=== PATIENT | female | born 1965 | race Two or more races ===

== ENCOUNTER 2019-11-24 06:16 | Inpatient (IN) | payer SELFPAY ==
[2019-11-24] VITALS (10 sets, daily range): BP systolic 101–167; BP diastolic 59–85
[~2019-11-24] VITALS: Ht 167.6 cm; Wt 82.1 kg
--- NOTE | 2019-11-24 06:44 | PHYS DOC ---
Past Medical History Past Medical History: No Pertinent History Past Surgical History: No Surgical History Smoking Status: Never Smoker Alcohol Use: None Drug Use: None Adult General Chief Complaint Chief Complaint: ABDOMINAL PAIN HPI HPI 54 year old female who presents with upper abdominal pain that began Sunday. Pain originally was intermittent, but became constant yesterday. Pain radiates t o the back and is currently 10/10. She has also been nauseous since Sunday and had one episode of nonbloody vomiting around 4am this morning. Last BM was yesterday and was nonbloody. She has not been able to eat much since Sunday. She ate some enchiladas which worsened her abdominal pain. She has had a similar pain like this about a year ago. She said that she went to [facility] and they said her "gallbladder was swollen". She also admits to dysuria that began about 2 weeks ago with increased frequency of urination and decreased void volume. She denies hematuria, heamtochezia, melena, chest pain, palpitations, or shortness of breath. Patient is Czech speaking. Daughter is in the room and helped provide the history. Review of Systems Review of Systems Constitutional: Denies fever or chills; reports malaise Eyes: Denies redness or eye pain HENT: Denies nasal congestion or sore throat Respiratory: Denies cough or shortness of breath Cardiovascular: Denies chest pain or palpitations GI: Admits to abdominal pain, nausea, and vomiting : Admits to dysuria and increased frequency of urination; denies hematuria Musculoskeletal: Admits to back pain; denies joint pain Integument: Denies rash or skin lesions Neurologic: Denies headache, focal weakness or sensory changes Complete systems were reviewed and found to be within normal limits, except as documented in this note. Family History Family History No pertinent family history. Current Medications Current Medications Current Medications Medications (Trade) Dose Ordered Sig/Nash Start Time Stop Time Status Last Admin Dose Admin Famotidine (Pepcid Vial) 20 mg 1X ONCE 11/24/19 07:30 11/24/19 07:31 DC 11/24/19 07:40 20 MG Fentanyl Citrate (Fentanyl 2ml Vial) 50 mcg PRN Q2HRS PRN 11/24/19 08:45 Ketorolac Tromethamine (Toradol 15mg Vial) 15 mg 1X ONCE 11/24/19 07:30 11/24/19 07:31 DC 11/24/19 07:39 15 MG Ondansetron HCl (Zofran) 4 mg PRN Q8HRS PRN 11/24/19 08:45 11/25/19 08:44 Piperacillin Sod/ Tazobactam Sod 3.375 gm/Sodium Chloride 50 ml @ 100 mls/hr 1X ONCE 11/24/19 09:00 11/24/19 09:29 Sodium Chloride 1,000 ml @ 100 mls/hr 1X ONCE 11/24/19 08:45 11/24/19 18:44 Allergies Allergies Allergies Coded Allergies Type Severity Reaction Last Updated Verified No Known Drug Allergies 11/24/19 No No allergies to medications Physical Exam Physical Exam Constitutional: Well developed, well nourished, acute distress, non-toxic appearance HENT: Normocephalic, atraumatic, oropharynx moist Eyes: EOMI, conjunctiva normal, no discharge Neck: Normal range of motion, supple Cardiovascular: Heart rate normal, regular rhythm Lungs & Thorax: Bilateral breath sounds clear to auscultation, no wheezing Abdomen: Soft, diffuse abdominal tenderness with increased tenderness located in upper quadrants and epigastric region, positive Kennedy's sign, voluntary guarding Skin: Warm, dry, no erythema, no rash Back: Tenderness in lower thoracic and lumbar paraspinal regions; no CVA tenderness Extremities: No tenderness, ROM intact, no edema Neurologic: Alert and oriented X 3, normal motor function, normal sensory function, no focal deficits noted Psychologic: Affect normal, judgment normal Current Patient Data Vital Signs Vital Signs Date Time Temp Pulse Resp B/P (MAP) Pulse Ox O2 Delivery O2 Flow Rate FiO2 11/24/19 06:25 97.7 69 18 163/82 (109) 98 Room Air 97.7 Lab Values Laboratory Tests Test 11/24/19 06:40 11/24/19 07:05 White Blood Count 13.8 x10^3/uL (4.0-11.0) H Red Blood Count 4.88 x10^6/uL (3.50-5.40) Hemoglobin 14.2 g/dL (12.0-15.5) Hematocrit 42.3 % (36.0-47.0) Mean Corpuscular Volume 87 fL (79-100) Mean Corpuscular Hemoglobin 29 pg (25-35) Mean Corpuscular Hemoglobin Concent 34 g/dL (31-37) Red Cell Distribution Width 14.3 % (11.5-14.5) Platelet Count 313 x10^3/uL (140-400) Neutrophils (%) (Auto) 82 % (31-73) H Lymphocytes (%) (Auto) 12 % (24-48) L Monocytes (%) (Auto) 5 % (0-9) Eosinophils (%) (Auto) 1 % (0-3) Basophils (%) (Auto) 1 % (0-3) Neutrophils # (Auto) 11.2 x10^3/uL (1.8-7.7) H Lymphocytes # (Auto) 1.7 x10^3/uL (1.0-4.8) Monocytes # (Auto) 0.7 x10^3/uL (0.0-1.1) Eosinophils # (Auto) 0.1 x10^3/uL (0.0-0.7) Basophils # (Auto) 0.1 x10^3/uL (0.0-0.2) Sodium Level 139 mmol/L (136-145) Potassium Level 3.8 mmol/L (3.5-5.1) Chloride Level 101 mmol/L (98-107) Carbon Dioxide Level 29 mmol/L (21-32) Anion Gap 9 (6-14) Blood Urea Nitrogen 8 mg/dL (7-20) Creatinine 0.7 mg/dL (0.6-1.0) Estimated GFR (Cockcroft-Gault) 87.5 BUN/Creatinine Ratio 11 (6-20) Glucose Level 131 mg/dL (70-99) H Calcium Level 9.2 mg/dL (8.5-10.1) Total Bilirubin 0.4 mg/dL (0.2-1.0) Aspartate Amino Transferase (AST) 15 U/L (15-37) Alanine Aminotransferase (ALT) 18 U/L (14-59) Alkaline Phosphatase 77 U/L (46-116) Creatine Kinase 44 U/L (26-192) Creatine Kinase MB (Mass) < 0.5 ng/mL (0.0-3.6) Creatine Kinase MB Relative Index % (0-4) Troponin I Quantitative < 0.017 ng/mL (0.000-0.055) Total Protein 7.7 g/dL (6.4-8.2) Albumin 3.9 g/dL (3.4-5.0) Albumin/Globulin Ratio 1.0 (1.0-1.7) Lipase 63 U/L (73-393) L Urine Collection Type Unknown Urine Color Yellow Urine Clarity Clear Urine pH 8.5 Urine Specific [place] 1.025 Urine Protein 100 mg/dL (NEG-TRACE) Urine Glucose (UA) Negative mg/dL (NEG) Urine Ketones (Stick) >=80 mg/dL (NEG) Urine Blood Negative (NEG) Urine Nitrite Negative (NEG) Urine Bilirubin Negative (NEG) Urine Urobilinogen Dipstick 0.2 mg/dL (0.2 mg/dL) Urine Leukocyte Esterase Negative (NEG) Urine RBC 6-10 /HPF (0-2) Urine WBC 1-4 /HPF (0-4) Urine Squamous Epithelial Cells Few /LPF Urine Bacteria Few /HPF (0-FEW) Urine Mucus Mod /LPF Laboratory Tests 11/24/19 06:40 Laboratory Tests 11/24/19 06:40 EKG EKG @0747 EKG shows sinus rhythm with heart rate at [address] changes noted. Radiology/Procedures Radiology/Procedures PROCEDURE: ABDOMEN LTD EXAM: Abdomen sonogram. HISTORY: Right upper quadrant pain. TECHNIQUE: Sonographic imaging of the abdomen was performed. COMPARISON: None. FINDINGS: The liver is normal in size. There is hepatic steatosis. No focal hepatic lesion is seen. There is a 2.7 cm gallstone. There is gallbladder sludge. The gallbladder wall is mildly thickened. There is no pericholecystic fluid. The common bile duct is obscured. The pancreas and inferior cava are obscured due to bowel gas. The right kidney is unremarkable. IMPRESSION: 1. 2.7 cm gallstone and gallbladder sludge. There is superimposed gallbladder wall thickening. This may be due to intrinsic liver disease or cholecystitis. 2. Hepatic steatosis. 3. Obscured common bile duct and midline structures due to bowel gas. Electronically signed by: Melissa Daley MD (11/24/2019 8:07 AM) [facility] [place] Course & Med Decision Making Course & Med Decision Making Pertinent Labs and Imaging studies reviewed. (See chart for details) Patient is a 54 year old female presenting with upper quadrant and epigastric abdominal pain that began on Sunday and has worsened and become constant. She has also had nausea with one episode of nonbloody emesis at 4 am this morning. A RUQ abdominal US was obtained. Lipase and troponin were within normal limits. EKG showed sinus rhythm with no acute ST changes. Zofran, Ketorolac, and Pepcid given for nausea and pain. She has also complained of dysuria that began 2 weeks ago along with increased frequency of urination. She denied any hematuria. Urinalysis was obtained with no significant findings for infection. US consistent for acute cholecystitis. Patient requiring admission for further evaluation and treatment. Discussed case with Dr. Winston (general surgery) who requests initiation of Zosyn and admission to hospitalist. Discussed with Dr. Simon (hospitalist) who is in agreement with admission. Discussed findings and plan with patient and family, who acknowledge understanding and agreement. Dragon Disclaimer Dragon Disclaimer This electronic medical record was generated, in whole or in part, using a voice recognition dictation system. Departure Departure Impression: Primary Impression: Acute cholecystitis Disposition: ADMITTED INPATIENT Condition: STABLE Referrals: JACOBO BROCK MD (PCP) JASMEET TELLES DO Nov 24, 2019 06:44
[2019-11-24 07:01] LABS: BASO # 0.1 x10^3/uL (0.0-0.2); BASO % 1 % (0-3); EOS # 0.1 x10^3/uL (0.0-0.7); EOS % 1 % (0-3); HEMATOCRIT 42.3 % (36.0-47.0); HEMOGLOBIN 14.2 g/dL (12.0-15.5); LYMPH # 1.7 x10^3/uL (1.0-4.8); LYMPH % 12 % (24-48); MEAN CORPUSCULAR HEMOGLOBIN 29 pg (25-35); MEAN CORPUSCULAR HGB CONC 34 g/dL (31-37); MEAN CORPUSCULAR VOLUME 87 fL (79-100); MONO # 0.7 x10^3/uL (0.0-1.1); MONO % 5 % (0-9); NEUT # 11.2 x10^3/uL (1.8-7.7); NEUT % 82 % (31-73); PLATELET COUNT 313 x10^3/uL (140-400); RED BLOOD COUNT 4.88 x10^6/uL (3.50-5.40); RED CELL DISTRIBUTION WIDTH 14.3 % (11.5-14.5); WHITE BLOOD COUNT 13.8 x10^3/uL (4.0-11.0)
[2019-11-24 07:18] LABS: CALCIUM 9.2 mg/dL (8.5-10.1); CREATININE 0.7 mg/dL (0.6-1.0); GFR 87.5; POTASSIUM 3.8 mmol/L (3.5-5.1)
[2019-11-24 07:23] LABS: ALBUMIN 3.9 g/dL (3.4-5.0); TOTAL BILIRUBIN 0.4 mg/dL (0.2-1.0); TOTAL PROTEIN 7.7 g/dL (6.4-8.2)
[2019-11-24 07:26] LABS: CREATINE KINASE 44 U/L (26-192)
[2019-11-24 07:27] LABS: BILIRUBIN,URINE NEGATIVE (NEG); CLARITY,URINE CLEAR; COLOR,URINE YELLOW; NITRITE,URINE NEGATIVE (NEG); PH,URINE 8.5; PROTEIN,URINE 100 mg/dL (NEG-TRACE); UROBILINOGEN,URINE 0.2 mg/dL (0.2 mg/dL)
[2019-11-24] MEDS ORDERED: ONDANSETRON PF 4 MG/2 ML VIAL. IV ONE (07:30)
[2019-11-24] MEDS ORDERED: KETOROLAC 15 MG/ML VIAL. IVP ONE (07:30)
[2019-11-24] MEDS ORDERED: IV NORMAL SALINE 1000ML BAG 1,000 ML IV ONE ×2 (07:30→08:45)
[2019-11-24] MEDS ORDERED: FAMOTIDINE 20 MG/2 ML VIAL IVP ONE (07:30)
[2019-11-24 07:43] LABS: BACTERIA,URINE FEW /HPF (0-FEW); SQUAMOUS EPITHELIAL CELL,UR FEW /LPF
--- NOTE | 2019-11-24 08:10 | RAD ---
EXAM: Abdomen sonogram. HISTORY: Right upper quadrant pain. TECHNIQUE: Sonographic imaging of the abdomen was performed. COMPARISON: None. FINDINGS: The liver is normal in size. There is hepatic steatosis. No focal hepatic lesion is seen. There is a 2.7 cm gallstone. There is gallbladder sludge. The gallbladder wall is mildly thickened. There is no pericholecystic fluid. The common bile duct is obscured. The pancreas and inferior cava are obscured due to bowel gas. The right kidney is unremarkable. IMPRESSION: 1. 2.7 cm gallstone and gallbladder sludge. There is superimposed gallbladder wall thickening. This may be due to intrinsic liver disease or cholecystitis. 2. Hepatic steatosis. 3. Obscured common bile duct and midline structures due to bowel gas. Electronically signed by: Melissa Daley MD (11/24/2019 8:07 AM) [facility] [place]
[2019-11-24] MEDS ORDERED: fentaNYL PF VIAL 100 MCG/2 ML VIAL IV ONE (08:30)
[2019-11-24] MEDS ORDERED: ONDANSETRON PF 4 MG/2 ML VIAL. IVP ONE (08:30)
[2019-11-24] MEDS ORDERED: ONDANSETRON PF 4 MG/2 ML VIAL. IV PRN ×2 (08:45→09:45)
[2019-11-24] MEDS ORDERED: fentaNYL PF VIAL 100 MCG/2 ML VIAL IV PRN (08:45)
--- NOTE | 2019-11-24 08:59 | PDOC1 ---
History and Physical Date of Admission Date of Admission DATE: 11/24/19 TIME: 08:56 Identification/Chief Complaint Chief Complaint Abdominal pain History of Present Illness History of Present Illness Ms Avina is a 54yo Bulgarian-speaking only Female with no PMHx who presents with upper abdominal pain that began Sunday11/22/2019. Pain originally was intermittent, but became constant 11/23/2019. Pain radiates to the back and is currently 10/10. She has also been nauseous since and had one episode of emesis 4am this morning. No changes in bowel movements. She has not been able to eat much since Sunday. She ate some enchiladas which worsened her abdominal pain. She has had a similar pain like this about a year ago. She said that she went to [facility] and they said her "gallbladder was swollen". She also admits to dysuria that began about 2 weeks ago with increased frequency of urination and decreased void volume. She denies hematuria, heamtochezia, melena, chest pain, palpitations, and shortness of breath. In ED US shows 2.7 cm gallstone and gallbladder sludge. There is superimposed gallbladder wall thickening. This may be due to intrinsic liver disease or cholecystitis. WBC was 13.8, afebrile. Given IV zosyn and consulted general surgery for admission for cholecystitis. Past Medical History Cardiovascular: No pertinent hx Pulmonary: No pertinent hx GI: No pertinent hx Heme/Onc: No pertinent hx Past Surgical History Past Surgical History: No pertinent history Family History Family History: High Cholestrol, Hypertension Social History Smoke: No ALCOHOL: none Drugs: None Current Problem List Problem List Problems Medical Problems: (1) Acute cholecystitis Status: Acute Current Medications Current Medications Current Medications Ondansetron HCl (Zofran) 4 mg 1X ONCE IV Last administered on 11/24/19at 07:39; Start 11/24/19 at 07:30; Stop 11/24/19 at 07:31; Status DC Famotidine (Pepcid Vial) 20 mg 1X ONCE IVP Last administered on 11/24/19at 07:40; Start 11/24/19 at 07:30; Stop 11/24/19 at 07:31; Status DC Sodium Chloride 1,000 ml @ 1,000 mls/hr 1X ONCE IV Last administered on 11/24/19at 07:38; Start 11/24/19 at 07:30; Stop 11/24/19 at 08:29; Status DC Ketorolac Tromethamine (Toradol 15mg Vial) 15 mg 1X ONCE IVP Last administered on 11/24/19at 07:39; Start 11/24/19 at 07:30; Stop 11/24/19 at 07:31; Status DC Fentanyl Citrate (Fentanyl 2ml Vial) 50 mcg 1X ONCE IV ; Start 11/24/19 at 08:30; Stop 11/24/19 at 08:32; Status DC Ondansetron HCl (Zofran) 4 mg 1X ONCE IVP ; Start 11/24/19 at 08:30; Stop 11/24/19 at 08:32; Status DC Ondansetron HCl (Zofran) 4 mg PRN Q8HRS PRN IV NAUSEA/VOMITING; Start 11/24/19 at 08:45; Stop 11/25/19 at 08:44 Fentanyl Citrate (Fentanyl 2ml Vial) 50 mcg PRN Q2HRS PRN IV PAIN; Start 11/24/19 at 08:45 Piperacillin Sod/ Tazobactam Sod 3.375 gm/Sodium Chloride 50 ml @ 100 mls/hr 1X ONCE IV ; Start 11/24/19 at 09:00; Stop 11/24/19 at 09:29 Sodium Chloride 1,000 ml @ 100 mls/hr 1X ONCE IV ; Start 11/24/19 at 08:45; Stop 11/24/19 at 18:44 Allergies Allergies: Coded Allergies: No Known Drug Allergies (Unverified , 11/24/19) ROS General: YES: Fatigue, Malaise, Appetite; No: Chills, Night Sweats, Other PSYCHOLOGICAL ROS: No: Anxiety, Behavioral Disorder, Concentration difficultie, Decreased libido, Depression, Disorientation, Hallucinations, Hostility, Irritablity, Memory difficulties, Mood Swings, Obsessive thoughts, Physical abuse, Sexual abuse, Sleep disturbances, Suicidal ideation, Other Eyes: No Blurry vision, No Decreased vision, No Double vision, No Dry eyes, No Excessive tearing, No Eye Pain, No Itchy Eyes, No Loss of vision, No Photophobia, No Scotomata, No Uses contacts, No Uses glasses, No Other HEENT: No: Heacaches, Visual Changes, Hearing change, Nasal congestion, Nasal discharge, Oral lesions, Sinus pain, Sore Throat, Epistaxis, Sneezing, Snoring, Tinnitus, Vertigo, Vocal changes, Other ALLERGY AND IMMUNOLOGY: No: Hives, Insect Bite Sensitivity, Itchy/Watery Eyes, Nasal Congestion, Post Nasal Drip, Seasonal Allergies, Other Hematological and Lymphatic: No: Bleeding Problems, Blood Clots, Blood Transfusions, Brusing, Night Sweats, Pallor, Swollen Lymph Nodes, Other ENDOCRINE: No: Breast Changes, Galactorrhea, Hair Pattern Changes, Hot Flashes, Malaise/lethargy, Mood Swings, Palpitations, Polydipsia/polyuria, Skin Changes, Temperature Intolerance, Unexpected Weight Changes, Other Breast: No New/Changing Breast Lumps, No Nipple changes, No Nipple discharge, No Other Respiratory: No: Cough, Hemoptysis, Orthopnea, Pleuritic Pain, Shortness of breath, SOB with excertion, Sputum Changes, Stridor, Tachypnea, Wheezing, Other Cardiovascular: No Chest Pain, No Palpitations, No Orthopnea, No Paroxysmal Noc. Dyspnea, No Edema, No Lt Headedness, No Other Gastrointestinal: Yes Nausea, Yes Vomiting, Yes Abdominal Pain; No Diarrhea, No Constipation, No Melena, No Hematochezia, No Other Genitourinary: YES Dysuria, YES Frequency; No Incontinence, No Hematuria, No Retention, No Discharge, No Urgency, No Pa in, No Flank Pain, No Other, No , No , No , No , No , No , No Musculoskeletal: No Gait Disturbance, No Joint Pain, No Joint Stiffness, No Joint Swelling, No Muscle Pain, No Muscular Weakness, No Pain In:, No Swelling In:, No Other Neurological: No Behavorial Changes, No Bowel/Bladder ControlChng, No Confusion, No Dizziness, No Gait Disturbance, No Headaches, No Impaired Coord/balance, No Memory Loss, No Numbness/Tingling, No Seizures, No Speech Problems, No Tremors, No Visual Changes, No Weakness, No Other Skin: No Dry Skin, No Eczema, No Hair Changes, No Lumps, No Mole Changes, No Mottling, No Nail Changes, No Pruritus, No Rash, No Skin Lesion Changes, No Other, No Acne Physical Exam General: Alert, Oriented X3, Cooperative, No acute distress HEENT: Atraumatic, PERRLA, EOMI, Mucous membr. moist/pink Lungs: Clear to auscultation, Normal air movement Heart: S1S2, RRR, no thrills, no rubs, no gallops, no murmurs Abdomen: Normal bowel sounds, Soft, No hepatosplenomegaly, No masses, Other (RUQ pain, positive elise's sign) Rectal Exam: not examined Extremities: No clubbing, No cyanosis, No edema, Normal pulses, No tenderness/swelling Skin: No rashes, No breakdown, No significant lesion Neuro: Normal gait, Normal speech, Strength at 5/5 X4 ext, Normal tone, Sensation intact, Cranial nerves 3-12 NL, Reflexes 2+ Psych/Mental Status: Mental status NL, Mood NL Vitals Vitals Vital Signs Date Time Temp Pulse Resp B/P (MAP) Pulse Ox O2 Delivery O2 Flow Rate FiO2 11/24/19 06:25 97.7 69 18 163/82 (109) 98 Room Air 97.7 Labs Labs Laboratory Tests Test 11/24/19 06:40 11/24/19 07:05 White Blood Count 13.8 x10^3/uL (4.0-11.0) Red Blood Count 4.88 x10^6/uL (3.50-5.40) Hemoglobin 14.2 g/dL (12.0-15.5) Hematocrit 42.3 % (36.0-47.0) Mean Corpuscular Volume 87 fL (79-100) Mean Corpuscular Hemoglobin 29 pg (25-35) Mean Corpuscular Hemoglobin Concent 34 g/dL (31-37) Red Cell Distribution Width 14.3 % (11.5-14.5) Platelet Count 313 x10^3/uL (140-400) Neutrophils (%) (Auto) 82 % (31-73) Lymphocytes (%) (Auto) 12 % (24-48) Monocytes (%) (Auto) 5 % (0-9) Eosinophils (%) (Auto) 1 % (0-3) Basophils (%) (Auto) 1 % (0-3) Neutrophils # (Auto) 11.2 x10^3/uL (1.8-7.7) Lymphocytes # (Auto) 1.7 x10^3/uL (1.0-4.8) Monocytes # (Auto) 0.7 x10^3/uL (0.0-1.1) Eosinophils # (Auto) 0.1 x10^3/uL (0.0-0.7) Basophils # (Auto) 0.1 x10^3/uL (0.0-0.2) Sodium Level 139 mmol/L (136-145) Potassium Level 3.8 mmol/L (3.5-5.1) Chloride Level 101 mmol/L (98-107) Carbon Dioxide Level 29 mmol/L (21-32) Anion Gap 9 (6-14) Blood Urea Nitrogen 8 mg/dL (7-20) Creatinine 0.7 mg/dL (0.6-1.0) Estimated GFR (Cockcroft-Gault) 87.5 BUN/Creatinine Ratio 11 (6-20) Glucose Level 131 mg/dL (70-99) Calcium Level 9.2 mg/dL (8.5-10.1) Total Bilirubin 0.4 mg/dL (0.2-1.0) Aspartate Amino Transf (AST/SGOT) 15 U/L (15-37) Alanine Aminotransferase (ALT/SGPT) 18 U/L (14-59) Alkaline Phosphatase 77 U/L (46-116) Creatine Kinase 44 U/L (26-192) Creatine Kinase MB (Mass) < 0.5 ng/mL (0.0-3.6) Creatine Kinase MB Relative Index % (0-4) Troponin I Quantitative < 0.017 ng/mL (0.000-0.055) Total Protein 7.7 g/dL (6.4-8.2) Albumin 3.9 g/dL (3.4-5.0) Albumin/Globulin Ratio 1.0 (1.0-1.7) Lipase 63 U/L (73-393) Urine Collection Type Unknown Urine Color Yellow Urine Clarity Clear Urine pH 8.5 Urine Specific [place] 1.025 Urine Protein 100 mg/dL (NEG-TRACE) Urine Glucose (UA) Negative mg/dL (NEG) Urine Ketones (Stick) >=80 mg/dL (NEG) Urine Blood Negative (NEG) Urine Nitrite Negative (NEG) Urine Bilirubin Negative (NEG) Urine Urobilinogen Dipstick 0.2 mg/dL (0.2 mg/dL) Urine Leukocyte Esterase Negative (NEG) Urine RBC 6-10 /HPF (0-2) Urine WBC 1-4 /HPF (0-4) Urine Squamous Epithelial Cells Few /LPF Urine Bacteria Few /HPF (0-FEW) Urine Mucus Mod /LPF Laboratory Tests Test 11/24/19 06:40 11/24/19 07:05 White Blood Count 13.8 x10^3/uL (4.0-11.0) Red Blood Count 4.88 x10^6/uL (3.50-5.40) Hemoglobin 14.2 g/dL (12.0-15.5) Hematocrit 42.3 % (36.0-47.0) Mean Corpuscular Volume 87 fL (79-100) Mean Corpuscular Hemoglobin 29 pg (25-35) Mean Corpuscular Hemoglobin Concent 34 g/dL (31-37) Red Cell Distribution Width 14.3 % (11.5-14.5) Platelet Count 313 x10^3/uL (140-400) Neutrophils (%) (Auto) 82 % (31-73) Lymphocytes (%) (Auto) 12 % (24-48) Monocytes (%) (Auto) 5 % (0-9) Eosinophils (%) (Auto) 1 % (0-3) Basophils (%) (Auto) 1 % (0-3) Neutrophils # (Auto) 11.2 x10^3/uL (1.8-7.7) Lymphocytes # (Auto) 1.7 x10^3/uL (1.0-4.8) Monocytes # (Auto) 0.7 x10^3/uL (0.0-1.1) Eosinophils # (Auto) 0.1 x10^3/uL (0.0-0.7) Basophils # (Auto) 0.1 x10^3/uL (0.0-0.2) Sodium Level 139 mmol/L (136-145) Potassium Level 3.8 mmol/L (3.5-5.1) Chloride Level 101 mmol/L (98-107) Carbon Dioxide Level 29 mmol/L (21-32) Anion Gap 9 (6-14) Blood Urea Nitrogen 8 mg/dL (7-20) Creatinine 0.7 mg/dL (0.6-1.0) Estimated GFR (Cockcroft-Gault) 87.5 BUN/Creatinine Ratio 11 (6-20) Glucose Level 131 mg/dL (70-99) Calcium Level 9.2 mg/dL (8.5-10.1) Total Bilirubin 0.4 mg/dL (0.2-1.0) Aspartate Amino Transf (AST/SGOT) 15 U/L (15-37) Alanine Aminotransferase (ALT/SGPT) 18 U/L (14-59) Alkaline Phosphatase 77 U/L (46-116) Creatine Kinase 44 U/L (26-192) Creatine Kinase MB (Mass) < 0.5 ng/mL (0.0-3.6) Creatine Kinase MB Relative Index % (0-4) Troponin I Quantitative < 0.017 ng/mL (0.000-0.055) Total Protein 7.7 g/dL (6.4-8.2) Albumin 3.9 g/dL (3.4-5.0) Albumin/Globulin Ratio 1.0 (1.0-1.7) Lipase 63 U/L (73-393) Urine Collection Type Unknown Urine Color Yellow Urine Clarity Clear Urine pH 8.5 Urine Specific [place] 1.025 Urine Protein 100 mg/dL (NEG-TRACE) Urine Glucose (UA) Negative mg/dL (NEG) Urine Ketones (Stick) >=80 mg/dL (NEG) Urine Blood Negative (NEG) Urine Nitrite Negative (NEG) Urine Bilirubin Negative (NEG) Urine Urobilinogen Dipstick 0.2 mg/dL (0.2 mg/dL) Urine Leukocyte Esterase Negative (NEG) Urine RBC 6-10 /HPF (0-2) Urine WBC 1-4 /HPF (0-4) Urine Squamous Epithelial Cells Few /LPF Urine Bacteria Few /HPF (0-FEW) Urine Mucus Mod /LPF Images Images RUQ US - The liver is normal in size. There is hepatic steatosis. No focal hepatic lesion is seen. There is a 2.7 cm gallstone. There is gallbladder sludge. The gallbladder wall is mildly thickened. There is no pericholecystic fluid. The common bile duct is obscured. The pancreas and inferior cava are obscured due to bowel gas. The right kidney is unremarkable. IMPRESSION: 1. 2.7 cm gallstone and gallbladder sludge. There is superimposed gallbladder wall thickening. This may be due to intrinsic liver disease or cholecystitis. 2. Hepatic steatosis. 3. Obscured common bile duct and midline structures due to bowel gas. VTE Prophylaxis Ordered VTE Prophylaxis Devices: No VTE Pharmacological Prophylaxi: No Assessment/Plan Assessment/Plan A/P: RUQ abdominal pain - with leukocytosis, large stone, sludge and findings consistent with cholecystitis will start empiric zosyn and keep NPO, consult general surgery. IV pain control, anti-emetics Hepatic steatosis - likely NAFLD. Will check A1c given her hyperglycemia, lipids Hyperglycemia - Will check A1c FEN - NPO PPX - SCDs FULL CODE Dispo - inpatient for acute cholecystitis KRISTEN PYLE MD Nov 24, 2019 08:59
[2019-11-24] MEDS ORDERED: PIPERACILLIN/TAZOBACTAM 3.375 GM in IV NORMAL SALINE 50ML 50 ML IV ONE (09:00)
--- NOTE | 2019-11-24 09:03 | PDOC2 ---
ANIYAH ALAN COMPOTYPE OPERATOR 11/24/19 0903: CONSULT Date of Consult Date of Consult DATE: 11/24/19 TIME: 08:59 Reason for Consult Reason for Consult: cholecystitis Referring Physician Referring Physician: ER Identification/Chief Complaint Chief Complaint abdominal pain Source Source: Chart review, Patient History of Present Illness Reason for Visit: RUQ, epigastric pain that radiates to back. Associated nausea and emesis. She has had similar pain in past. Was told had a swollen gallbladder, given medications. This time pain was worse. No diarrhea, some constipation Past Medical History Past Medical History no pertinent hx Past Surgical History Past Surgical History: No pertinent history Family History Family History: Other (noncontributory to current illness ) Social History No ALCOHOL: none Drugs: None Lives: with Family Current Problem List Problem List Problems Medical Problems: (1) Acute cholecystitis Status: Acute Current Medications Current Medications Current Medications Ondansetron HCl (Zofran) 4 mg 1X ONCE IV Last administered on 11/24/19at 07:39; Start 11/24/19 at 07:30; Stop 11/24/19 at 07:31; Status DC Famotidine (Pepcid Vial) 20 mg 1X ONCE IVP Last administered on 11/24/19at 07:40; Start 11/24/19 at 07:30; Stop 11/24/19 at 07:31; Status DC Sodium Chloride 1,000 ml @ 1,000 mls/hr 1X ONCE IV Last administered on 11/08 04/26at 07:38; Start 11/24/19 at 07:30; Stop 11/24/19 at 08:29; Status DC Ketorolac Tromethamine (Toradol 15mg Vial) 15 mg 1X ONCE IVP Last administered on 11/24/19at 07:39; Start 11/24/19 at 07:30; Stop 11/24/19 at 07:31; Status DC Fentanyl Citrate (Fentanyl 2ml Vial) 50 mcg 1X ONCE IV ; Start 11/24/19 at 08:30; Stop 11/24/19 at 08:32; Status DC Ondansetron HCl (Zofran) 4 mg 1X ONCE IVP ; Start 11/24/19 at 08:30; Stop 11/24/19 at 08:32; Status DC Ondansetron HCl (Zofran) 4 mg PRN Q8HRS PRN IV NAUSEA/VOMITING; Start 11/24/19 at 08:45; Stop 11/25/19 at 08:44 Fentanyl Citrate (Fentanyl 2ml Vial) 50 mcg PRN Q2HRS PRN IV PAIN; Start 11/24/19 at 08:45 Piperacillin Sod/ Tazobactam Sod 3.375 gm/Sodium Chloride 50 ml @ 100 mls/hr 1X ONCE IV ; Start 11/24/19 at 09:00; Stop 11/24/19 at 09:29 Sodium Chloride 1,000 ml @ 100 mls/hr 1X ONCE IV ; Start 11/24/19 at 08:45; Stop 11/24/19 at 18:44 Allergies Allergies: Coded Allergies: No Known Drug Allergies (Unverified , 11/24/19) ROS General: YES: Chills; No: Other (fevers ) PSYCHOLOGICAL ROS: No: Anxiety, Depression Eyes: No Blurry vision, No Double vision HEENT: No: Heacaches, Sore Throat Hematological and Lymphatic: No: Bleeding Problems, Blood Clots Respiratory: No: Cough, Shortness of breath Cardiovascular: No Chest Pain, No Palpitations Gastrointestinal: Yes Other (see hpi) Genitourinary: YES Dysuria, YES Urgency Musculoskeletal: No Joint Pain, No Muscle Pain Neurological: No Impaired Coord/balance Skin: No Pruritus, No Rash Physical Exam General: Alert, Oriented X3, Cooperative, No acute distress HEENT: Atraumatic, PERRLA Lungs: Clear to auscultation, Normal air movement Heart: Regular rate, Normal S1, Normal S2 Abdomen: Soft, Other (modoerate TTP RUQ) Extremities: No clubbing, No cyanosis Skin: No rashes, No breakdown Neuro: Normal gait, Normal speech Psych/Mental Status: Mental status NL, Mood NL MUSCULOSKELETAL: No deformity, No swelling Vitals VITALS Vital Signs Date Time Temp Pulse Resp B/P (MAP) Pulse Ox O2 Delivery O2 Flow Rate FiO2 11/24/19 06:25 97.7 69 18 163/82 (109) 98 Room Air 97.7 Labs Labs Laboratory Tests Test 11/24/19 06:40 11/24/19 07:05 White Blood Count 13.8 x10^3/uL (4.0-11.0) Red Blood Count 4.88 x10^6/uL (3.50-5.40) Hemoglobin 14.2 g/dL (12.0-15.5) Hematocrit 42.3 % (36.0-47.0) Mean Corpuscular Volume 87 fL (79-100) Mean Corpuscular Hemoglobin 29 pg (25-35) Mean Corpuscular Hemoglobin Concent 34 g/dL (31-37) Red Cell Distribution Width 14.3 % (11.5-14.5) Platelet Count 313 x10^3/uL (140-400) Neutrophils (%) (Auto) 82 % (31-73) Lymphocytes (%) (Auto) 12 % (24-48) Monocytes (%) (Auto) 5 % (0-9) Eosinophils (%) (Auto) 1 % (0-3) Basophils (%) (Auto) 1 % (0-3) Neutrophils # (Auto) 11.2 x10^3/uL (1.8-7.7) Lymphocytes # (Auto) 1.7 x10^3/uL (1.0-4.8) Monocytes # (Auto) 0.7 x10^3/uL (0.0-1.1) Eosinophils # (Auto) 0.1 x10^3/uL (0.0-0.7) Basophils # (Auto) 0.1 x10^3/uL (0.0-0.2) Sodium Level 139 mmol/L (136-145) Potassium Level 3.8 mmol/L (3.5-5.1) Chloride Level 101 mmol/L (98-107) Carbon Dioxide Level 29 mmol/L (21-32) Anion Gap 9 (6-14) Blood Urea Nitrogen 8 mg/dL (7-20) Creatinine 0.7 mg/dL (0.6-1.0) Estimated GFR (Cockcroft-Gault) 87.5 BUN/Creatinine Ratio 11 (6-20) Glucose Level 131 mg/dL (70-99) Calcium Level 9.2 mg/dL (8.5-10.1) Total Bilirubin 0.4 mg/dL (0.2-1.0) Aspartate Amino Transf (AST/SGOT) 15 U/L (15-37) Alanine Aminotransferase (ALT/SGPT) 18 U/L (14-59) Alkaline Phosphatase 77 U/L (46-116) Creatine Kinase 44 U/L (26-192) Creatine Kinase MB (Mass) < 0.5 ng/mL (0.0-3.6) Creatine Kinase MB Relative Index % (0-4) Troponin I Quantitative < 0.017 ng/mL (0.000-0.055) Total Protein 7.7 g/dL (6.4-8.2) Albumin 3.9 g/dL (3.4-5.0) Albumin/Globulin Ratio 1.0 (1.0-1.7) Lipase 63 U/L (73-393) Urine Collection Type Unknown Urine Color Yellow Urine Clarity Clear Urine pH 8.5 Urine Specific [place] 1.025 Urine Protein 100 mg/dL (NEG-TRACE) Urine Glucose (UA) Negative mg/dL (NEG) Urine Ketones (Stick) >=80 mg/dL (NEG) Urine Blood Negative (NEG) Urine Nitrite Negative (NEG) Urine Bilirubin Negative (NEG) Urine Urobilinogen Dipstick 0.2 mg/dL (0.2 mg/dL) Urine Leukocyte Esterase Negative (NEG) Urine RBC 6-10 /HPF (0-2) Urine WBC 1-4 /HPF (0-4) Urine Squamous Epithelial Cells Few /LPF Urine Bacteria Few /HPF (0-FEW) Urine Mucus Mod /LPF Laboratory Tests Test 11/24/19 06:40 11/24/19 07:05 White Blood Count 13.8 x10^3/uL (4.0-11.0) Red Blood Count 4.88 x10^6/uL (3.50-5.40) Hemoglobin 14.2 g/dL (12.0-15.5) Hematocrit 42.3 % (36.0-47.0) Mean Corpuscular Volume 87 fL (79-100) Mean Corpuscular Hemoglobin 29 pg (25-35) Mean Corpuscular Hemoglobin Concent 34 g/dL (31-37) Red Cell Distribution Width 14.3 % (11.5-14.5) Platelet Count 313 x10^3/uL (140-400) Neutrophils (%) (Auto) 82 % (31-73) Lymphocytes (%) (Auto) 12 % (24-48) Monocytes (%) (Auto) 5 % (0-9) Eosinophils (%) (Auto) 1 % (0-3) Basophils (%) (Auto) 1 % (0-3) Neutrophils # (Auto) 11.2 x10^3/uL (1.8-7.7) Lymphocytes # (Auto) 1.7 x10^3/uL (1.0-4.8) Monocytes # (Auto) 0.7 x10^3/uL (0.0-1.1) Eosinophils # (Auto) 0.1 x10^3/uL (0.0-0.7) Basophils # (Auto) 0.1 x10^3/uL (0.0-0.2) Sodium Level 139 mmol/L (136-145) Potassium Level 3.8 mmol/L (3.5-5.1) Chloride Level 101 mmol/L (98-107) Carbon Dioxide Level 29 mmol/L (21-32) Anion Gap 9 (6-14) Blood Urea Nitrogen 8 mg/dL (7-20) Creatinine 0.7 mg/dL (0.6-1.0) Estimated GFR (Cockcroft-Gault) 87.5 BUN/Creatinine Ratio 11 (6-20) Glucose Level 131 mg/dL (70-99) Calcium Level 9.2 mg/dL (8.5-10.1) Total Bilirubin 0.4 mg/dL (0.2-1.0) Aspartate Amino Transf (AST/SGOT) 15 U/L (15-37) Alanine Aminotransferase (ALT/SGPT) 18 U/L (14-59) Alkaline Phosphatase 77 U/L (46-116) Creatine Kinase 44 U/L (26-192) Creatine Kinase MB (Mass) < 0.5 ng/mL (0.0-3.6) Creatine Kinase MB Relative Index % (0-4) Troponin I Quantitative < 0.017 ng/mL (0.000-0.055) Total Protein 7.7 g/dL (6.4-8.2) Albumin 3.9 g/dL (3.4-5.0) Albumin/Globulin Ratio 1.0 (1.0-1.7) Lipase 63 U/L (73-393) Urine Collection Type Unknown Urine Color Yellow Urine Clarity Clear Urine pH 8.5 Urine Specific [place] 1.025 Urine Protein 100 mg/dL (NEG-TRACE) Urine Glucose (UA) Negative mg/dL (NEG) Urine Ketones (Stick) >=80 mg/dL (NEG) Urine Blood Negative (NEG) Urine Nitrite Negative (NEG) Urine Bilirubin Negative (NEG) Urine Urobilinogen Dipstick 0.2 mg/dL (0.2 mg/dL) Urine Leukocyte Esterase Negative (NEG) Urine RBC 6-10 /HPF (0-2) Urine WBC 1-4 /HPF (0-4) Urine Squamous Epithelial Cells Few /LPF Urine Bacteria Few /HPF (0-FEW) Urine Mucus Mod /LPF Assessment/Plan Assessment/Plan cholecystitis plan lap dennys today HARIS ASHFORD MD 11/24/19 1214: CONSULT Assessment/Plan Assessment/Plan Pt seen and examined by myself today; presented with upper abdominal pain, sonogram in ER consistent with acute cholecystitis; PMH/PSH/ROS/SH as above; exam: alert, uncomfortable, lungs clear, heart RR and R, abdomen soft, tender RUQ with palpation, ext neg for edema; A/P) Acute cholecystitis, recommend lap dennys. ANIYAH ALAN APRN Nov 24, 2019 09:03 HARIS ASHFORD MD Nov 24, 2019 12:14
--- NOTE | 2019-11-24 11:21 | EKG ---
[facility] [address] [place] [address] Test Date: 2019-11-24 Test Time: 07:47:36 Pat Name: KEVON MCKEON Department: Room: Gender: F Childhood Teacher: : 1965 Requested By: JASMEET TELLES Order Number: [id number] Reading MD: Measurements Intervals [place] Rate: 69 P: 24 OR: 188 QRS: -14 QRSD: 76 T: 13 QT: 424 QTc: 456 Interpretive Statements SINUS RHYTHM LEFTWARD AXIS OTHERWISE NORMAL ECG RI6.01 No previous ECG available for comparison
[2019-11-24] MEDS ORDERED: SURGICEL HEMOSTAT 4X8 EACH. ONE (11:42)
[2019-11-24] MEDS ORDERED: IOHEXOL 300 MG/ML 50 ML VIAL. ONE (11:42)
[2019-11-24] MEDS ORDERED: BUPIVACAINE MPF 0.5% 30 ML VIAL. ONE (11:42)
[2019-11-24] MEDS ORDERED: fentaNYL PF VIAL 250 MCG/5 ML VIAL ONE (12:29)
[2019-11-24] MEDS ORDERED: LIDOCAINE 2% PF 5 ML VIAL. ONE (13:17)
[2019-11-24] MEDS ORDERED: ONDANSETRON PF 4 MG/2 ML VIAL. ONE (13:17)
[2019-11-24] MEDS ORDERED: PROPOFOL 20 ML IV ONE (13:17)
[2019-11-24] MEDS ORDERED: SEVOFLURANE 61 TO 120 MINUTES. IH ONE (13:17)
[2019-11-24] MEDS ORDERED: DEXAMETHASONE SOD PHOS 4 MG/ML VIAL ONE (13:17)
[2019-11-24] MEDS ORDERED: NEOSTIGMINE METHYLSULFATE 5 MG/5 ML SYRINGE. ONE (13:18)
[2019-11-24] MEDS ORDERED: GLYCOPYRROLATE 1 MG/5 ML VIAL. ONE (13:18)
--- NOTE | 2019-11-24 13:23 | PDOC4 ---
Operative Note Operative Note Operative Note: Preoperative Diagnosis: Acute cholecystitis Postoperative Diagnosis: Same Procedure: Laparoscopic cholecystectomy with intraoperative cholangiogram Surgeon: Catrachito Coke Wheeler: Lexie CHERRY Anesthesia: Gen. Estimated Blood Loss: 25 mL Specimen: Gallbladder to pathology Drains: None Complications: None Indications: The patient is a 54-year-old female who was admitted with abdominal pain. Her evaluation is consistent with acute cholecystitis. Surgical treatment was offered by means of a laparoscopic cholecystectomy. The risks of surgery were discussed which include bleeding, infection, bile duct injury, bile leak, pain, the potential for additional surgeries or procedures. The patient understands and would like to proceed. Description: The patient was taken to the operating room and laid supine on the operating table. General anesthesia was performed. The abdomen was prepped with ChloraPrep and draped in a standard surgical fashion. A small infraumbilical incision was made with a scalpel. The Veress needle was then inserted and a pneumoperitoneum was then created. A 5 mm trocar was then inserted and the laparoscope was introduced. In the upper midabdomen an 11 mm trocar was inserted and in the right upper quadrant two 5 mm trocars were inserted. The gallbladder was markedly inflamed and thickened consistent with acute cholecystitis. Approximately 55 mL of bilious fluid was aspirated providing gallbladder decompression. The gallbladder was retracted cephalad. The cystic duct was dissected free from surrounding tissues. One clip was placed on the duct near the gallbladder junction. An opening was made in the duct and a cholangiocatheter placed within and secured with a clip. Using contrast dye and fluoroscopy an intraoperative cholangiogram was performed that appeared unremarkable. The clip and catheter were then withdrawn. Three clips were placed on the cystic duct and it was divided. The cystic artery was then identified, dissected free, doubly clipped and divided as well. The gallbladder was then mobilized away from the liver with cautery. A Surgicel pack was placed on the gallbladder fossa to assist with oozing. The gallbladder was then placed in an endoscopic bag and extracted at the superior trocar site. The fascia there was closed with an 0 PDS sutures. All blood and irrigation fluid was suctioned and hemostasis was good. The remaining ports were removed and the pneumoperitoneum was relieved. The skin incisions were injected with half percent Marcaine with epinephrine, and all were closed using 4-0 Monocryl du ture. Steri-Strips and dressings were then applied. The patient tolerated the procedure well and was sent to the recovery room in stable condition. At the end of the case all counts were correct. HARIS ASHFORD MD Nov 24, 2019 13:23
[2019-11-24] MEDS ORDERED: oxyCODONE/APAP 5/325 1 TAB TABLET PO PRN (13:30)
[2019-11-24] MEDS: IV RINGERS,LACTATED 1000ML 1,000 ML IV SCH ×2 (13:43→21:00)
--- NOTE | 2019-11-24 13:57 | RAD ---
Examination: CHOLANGIOGRAM INTRAOPERATIVE History: Cholelithiasis Comparison/Correlation: None Findings: Fluoroscopy was utilized for 12.6 seconds. Contrast is noted within the cystic duct remnant and within the biliary tree. The common duct distends adequately. No stricture or suspicious filling defect identified. Slight distention of the partially opacified intrahepatic biliary tree is noted. Contrast is present within the proximal pancreatic duct. At the distal common bile duct, and there is a limb which extends to the duodenum and a separate M which is conjoined with the pancreatic duct. Cholecystectomy clips noted. Impression: No suspicious filling defects within the common bile duct or strictures. Variant anatomy of the distal common bile duct. Electronically signed by: Maico Zavala MD (11/24/2019 1:54 PM) [facility]
[2019-11-24] MEDS: PIPERACILLIN/TAZOBACTAM 3.375 GM in IV NORMAL SALINE 50ML 50 ML IV SCH (17:04)
[2019-11-24] MEDS: oxyCODONE/APAP 5/325 1 TAB TABLET PO PRN (19:20)
[2019-11-25] MEDS: PIPERACILLIN/TAZOBACTAM 3.375 GM in IV NORMAL SALINE 50ML 50 ML IV SCH ×3 (00:08→12:00)
[2019-11-25 03:00] VITALS: BP 111/63
[2019-11-25 07:00] VITALS: BP 108/59
--- NOTE | 2019-11-25 08:00 | PDOC ---
PROGRESS NOTES Chief Complaint Chief Complaint A/P: RUQ abdominal pain - with leukocytosis, large stone, sludge and findings consistent with cholecystitis given empiric zosyn, consulted general surgery, s/p lap appy 11/24/2019. IV pain control, anti-emetics Hepatic steatosis - likely NAFLD. Will check A1c given her hyperglycemia, lipids Hyperglycemia - checked A1c FEN - NPO PPX - SCDs FULL CODE Dispo - inpatient for acute cholecystitis History of Present Illness History of Present Illness Ms Avina is a 54yo Trinid[place]-speaking only Female with no PMHx who presents with upper abdominal pain that began Sunday11/22/2019. Pain originally was intermittent, but became constant 11/23/2019. Pain radiates to the back and is currently 10/10. She has also been nauseous since and had one episode of emesis 4am this morning. No changes in bowel movements. She has not been able to eat much since Sunday. She ate some enchiladas which worsened her abdominal pain. She has had a similar pain like this about a year ago. She said that she went to [facility] and they said her "gallbladder was swollen". She also admits to dysuria that began about 2 weeks ago with increased frequency of urination and decreased void volume. She denies hematuria, heamtochezia, melena, chest pain, palpitations, and shortness of breath. In ED US shows 2.7 cm gallstone and gallbladder sludge. There is superimposed gallbladder wall thickening. This may be due to intrinsic liver disease or cholecystitis. WBC was 13.8, afebrile. Given IV zosyn and consulted general surgery for admission for cholecystitis. To Lap dennys confirming cholecystitis on 11/24/2019 in the afternoon. Seen POD #1. Minimal pain, passing flatus. Vitals Vitals Vital Signs Date Time Temp Pulse Resp B/P (MAP) Pulse Ox O2 Delivery O2 Flow Rate FiO2 11/25/19 07:00 98.2 57 16 108/59 (75) 100 Room Air 98.2 11/24/19 14:43 10 Physical Exam General: Alert, Oriented X3, Cooperative, No acute distress Heart: Regular rate, Normal S1, Normal S2 Abdomen: Normal bowel sounds, Soft, No hepatosplenomegaly, No masses, Other (RUQ pain, positive elise's sign) Extremities: No clubbing, No cyanosis, No edema, Normal pulses, No t enderness/swelling Skin: No rashes, No breakdown, No significant lesion Assessment and Plan Assessmemt and Plan Problems Medical Problems: (1) Acute cholecystitis Status: Acute Comment Review of Relevant I have reviewed the following items tex (where applicable) has been applied. Labs Laboratory Tests Test 11/24/19 06:40 11/24/19 07:05 White Blood Count 13.8 x10^3/uL (4.0-11.0) Red Blood Count 4.88 x10^6/uL (3.50-5.40) Hemoglobin 14.2 g/dL (12.0-15.5) Hematocrit 42.3 % (36.0-47.0) Mean Corpuscular Volume 87 fL (79-100) Mean Corpuscular Hemoglobin 29 pg (25-35) Mean Corpuscular Hemoglobin Concent 34 g/dL (31-37) Red Cell Distribution Width 14.3 % (11.5-14.5) Platelet Count 313 x10^3/uL (140-400) Neutrophils (%) (Auto) 82 % (31-73) Lymphocytes (%) (Auto) 12 % (24-48) Monocytes (%) (Auto) 5 % (0-9) Eosinophils (%) (Auto) 1 % (0-3) Basophils (%) (Auto) 1 % (0-3) Neutrophils # (Auto) 11.2 x10^3/uL (1.8-7.7) Lymphocytes # (Auto) 1.7 x10^3/uL (1.0-4.8) Monocytes # (Auto) 0.7 x10^3/uL (0.0-1.1) Eosinophils # (Auto) 0.1 x10^3/uL (0.0-0.7) Basophils # (Auto) 0.1 x10^3/uL (0.0-0.2) Sodium Level 139 mmol/L (136-145) Potassium Level 3.8 mmol/L (3.5-5.1) Chloride Level 101 mmol/L (98-107) Carbon Dioxide Level 29 mmol/L (21-32) Anion Gap 9 (6-14) Blood Urea Nitrogen 8 mg/dL (7-20) Creatinine 0.7 mg/dL (0.6-1.0) Estimated GFR (Cockcroft-Gault) 87.5 BUN/Creatinine Ratio 11 (6-20) Glucose Level 131 mg/dL (70-99) Calcium Level 9.2 mg/dL (8.5-10.1) Total Bilirubin 0.4 mg/dL (0.2-1.0) Aspartate Amino Transf (AST/SGOT) 15 U/L (15-37) Alanine Aminotransferase (ALT/SGPT) 18 U/L (14-59) Alkaline Phosphatase 77 U/L (46-116) Creatine Kinase 44 U/L (26-192) Creatine Kinase MB (Mass) < 0.5 ng/mL (0.0-3.6) Creatine Kinase MB Relative Index % (0-4) Troponin I Quantitative < 0.017 ng/mL (0.000-0.055) Total Protein 7.7 g/dL (6.4-8.2) Albumin 3.9 g/dL (3.4-5.0) Albumin/Globulin Ratio 1.0 (1.0-1.7) Lipase 63 U/L (73-393) Urine Collection Type Unknown Urine Color Yellow Urine Clarity Clear Urine pH 8.5 Urine Specific [place] 1.025 Urine Protein 100 mg/dL (NEG-TRACE) Urine Glucose (UA) Negative mg/dL (NEG) Urine Ketones (Stick) >=80 mg/dL (NEG) Urine Blood Negative (NEG) Urine Nitrite Negative (NEG) Urine Bilirubin Negative (NEG) Urine Urobilinogen Dipstick 0.2 mg/dL (0.2 mg/dL) Urine Leukocyte Esterase Negative (NEG) Urine RBC 6-10 /HPF (0-2) Urine WBC 1-4 /HPF (0-4) Urine Squamous Epithelial Cells Few /LPF Urine Bacteria Few /HPF (0-FEW) Urine Mucus Mod /LPF Medications Current Medications Ondansetron HCl (Zofran) 4 mg 1X ONCE IV Last administered on 11/24/19at 07:39; Start 11/24/19 at 07:30; Stop 11/24/19 at 07:31; Status DC Famotidine (Pepcid Vial) 20 mg 1X ONCE IVP Last administered on 11/24/19at 07:40; Start 11/24/19 at 07:30; Stop 11/24/19 at 07:31; Status DC Sodium Chloride 1,000 ml @ 1,000 mls/hr 1X ONCE IV Last administered on 11/24/19at 07:38; Start 11/24/19 at 07:30; Stop 11/24/19 at 08:29; Status DC Ketorolac Tromethamine (Toradol 15mg Vial) 15 mg 1X ONCE IVP Last administered on 11/24/19at 07:39; Start 11/24/19 at 07:30; Stop 11/24/19 at 07:31; Status DC Fentanyl Citrate (Fentanyl 2ml Vial) 50 mcg 1X ONCE IV Last administered on 11/24/19at 09:21; Start 11/24/19 at 08:30; Stop 11/24/19 at 08:32; Status DC Ondansetron HCl (Zofran) 4 mg 1X ONCE IVP Last administered on 11/24/19at 09:2 1; Start 11/24/19 at 08:30; Stop 11/24/19 at 08:32; Status DC Ondansetron HCl (Zofran) 4 mg PRN Q8HRS PRN IV NAUSEA/VOMITING; Start 11/24/19 at 08:45; Stop 11/24/19 at 09:42; Status DC Fentanyl Citrate (Fentanyl 2ml Vial) 50 mcg PRN Q2HRS PRN IV PAIN Last administered on 11/24/19at 11:08; Start 11/24/19 at 08:45 Piperacillin Sod/ Tazobactam Sod 3.375 gm/Sodium Chloride 50 ml @ 100 mls/hr 1X ONCE IV Last administered on 11/24/19at 09:22; Start 11/24/19 at 09:00; Stop 11/24/19 at 09:29; Status DC Sodium Chloride 1,000 ml @ 100 mls/hr 1X ONCE IV Last administered on 11/24/19at 09:22; Start 11/24/19 at 08:45; Stop 11/24/19 at 18:44; Status DC Ondansetron HCl (Zofran) 4 mg PRN Q4HRS PRN IV NAUSEA/VOMITING; Start 11/24/19 at 09:45 Piperacillin Sod/ Tazobactam Sod 3.375 gm/Sodium Chloride 50 ml @ 100 mls/hr Q6HRS IV Last administered on 11/25/19at 06:14; Start 11/24/19 at 15:00 Iohexol (Omnipaque 300 Mg/ml) 50 ml STK-MED ONCE .ROUTE Last administered on 11/24/19at 12:33; Start 11/24/19 at 11:42; Stop 11/24/19 at 11:43; Status DC Cellulose (Surgicel Hemostat 4x8) 1 each STK-MED ONCE .ROUTE Last administered on 11/24/19at 12:59; Start 11/24/19 at 11:42; Stop 11/24/19 at 11:43; Status DC Bupivacaine HCl (Sensorcaine Mpf 0.5%) 30 ml STK-MED ONCE .ROUTE Last administered on 11/24/19at 12:33; Start 11/24/19 at 11:42; Stop 11/24/19 at 11:43; Status DC Fentanyl Citrate (Fentanyl 5ml Vial) 250 mcg STK-MED ONCE .ROUTE ; Start 11/24/19 at 12:29; Stop 11/24/19 at 12:29; Status DC Ondansetron HCl (Zofran) 4 mg STK-MED ONCE .ROUTE ; Start 11/24/19 at 13:17; Stop 11/24/19 at 13:17; Status DC Propofol 20 ml @ As Directed STK-MED ONCE IV ; Start 11/24/19 at 13:17; Stop 11/24/19 at 13:17; Status DC Lidocaine HCl (Lidocaine Pf 2% Vial) 5 ml STK-MED ONCE .ROUTE ; Start 11/24/19 at 13:17; Stop 11/24/19 at 13:17; Status DC Dexamethasone Sodium Phosphate (Decadron) 4 mg STK-MED ONCE .ROUTE ; Start 11/24/19 at 13:17; Stop 11/24/19 at 13:17; Status DC Sevoflurane (Ultane) 60 ml STK-MED ONCE IH ; Start 11/24/19 at 13:17; Stop 11/24/19 at 13:17; Status DC Glycopyrrolate (Robinul) 1 mg STK-MED ONCE .ROUTE ; Start 11/24/19 at 13:18; Stop 11/24/19 at 13:19; Status DC Neostigmine [place] (Neostigmine Methylsulfate) 5 mg STK-MED ONCE .ROUTE ; Start 11/24/19 at 13:18; Stop 11/24/19 at 13:19; Status DC Oxycodone/ Acetaminophen (Percocet 5/325) 1 tab PRN Q4HRS PRN PO PAIN Last administered on 11/24/19at 19:20; Start 11/24/19 at 13:30 Oxycodone/ Acetaminophen (Percocet 5/325) 2 tab PRN Q4HRS PRN PO PAIN; Start 11/24/19 at 13:30 Ringer's Solution 1,000 ml @ 125 mls/hr Q8H IV Last administered on 11/24/19at 13:43; Start 11/24/19 at 13:00; Stop 11/24/19 at 21:27; Status DC Vitals/I & O Vital Sign - Last 24 Hours 11/24/19 11/24/19 11/24/19 11/24/19 09:17 09:25 10:30 11:08 Temp 98.3 98.3 Pulse 67 66 68 Resp 16 16 16 B/P (MAP) 145/66 (92) 155/74 (101) 167/74 (105) Pulse Ox 100 98 99 O2 Delivery Room Air Room Air Room Air Room Air 11/24/19 11/24/19 11/24/19 11/24/19 11:38 11:41 13:44 13:44 Temp 99.2 97.2 99.2 97.2 Pulse 67 81 Resp 24 20 B/P (MAP) 177/81 103/48 Pulse Ox 97 97 99 O2 Delivery Simple Mask Mask O2 Flow Rate 10 10 11/24/19 11/24/19 11/24/19 11/24/19 14:13 14:28 14:43 14:58 Temp 97.2 97.2 Pulse 67 66 68 70 Resp 20 20 20 20 B/P (MAP) 106/61 106/61 128/67 121/73 Pulse Ox 100 100 100 99 O2 Delivery Simple Mask Simple Mask Simple Mask O2 Flow Rate 10 10 10 11/24/19 11/24/19 11/24/19 11/24/19 15:13 15:30 15:45 16:00 Temp 97.6 97.6 98.2 97.6 97.6 98.2 Pulse 78 86 88 89 Resp 20 16 18 18 B/P (MAP) 131/68 139/71 (93) 135/82 (99) 143/76 (98) Pulse Ox 99 94 96 96 O2 Delivery Simple Mask Room Air Room Air Room Air 11/24/19 11/24/19 11/24/19 11/24/19 16:15 16:45 17:15 18:26 Temp 97.9 97.9 Pulse 91 80 98 97 Resp 18 18 B/P (MAP) 136/82 (100) 129/80 (96) 125/72 (89) 135/85 (102) Pulse Ox 97 96 96 97 O2 Delivery Room Air Room Air Room Air 11/24/19 11/24/19 11/24/19 11/24/19 19:00 19:20 20:30 23:00 Temp 98.4 98.0 98.4 98.0 Pulse 73 69 Resp 18 24 20 16 B/P (MAP) 116/69 (85) 101/59 (73) Pulse Ox 94 98 O2 Delivery Room Air Room Air 11/25/19 11/25/19 03:00 07:00 Temp 98.0 98.2 98.0 98.2 Pulse 61 57 Resp 18 16 B/P (MAP) 111/63 (79) 108/59 (75) Pulse Ox 98 100 O2 Delivery Room Air Room Air Intake and Output 11/24/19 11/24/19 11/25/19 15:00 23:00 07:00 Intake Total 2050 ml 830 ml 100 ml Output Total 175 ml Balance 1875 ml 830 ml 100 ml KRISTEN PYLE MD Nov 25, 2019 08:00
--- NOTE | 2019-11-25 10:30 | PDOC ---
ANIYAH ALAN EVALUATOR 11/25/19 1030: SURGICAL PROGRESS NOTE Subjective tolerating diet feeling better no n/v eating Vital Signs Vital Signs Date Time Temp Pulse Resp B/P (MAP) Pulse Ox O2 Delivery O2 Flow Rate FiO2 11/25/19 07:00 98.2 57 16 108/59 (75) 100 Room Air 98.2 11/24/19 14:43 10 I&O Intake and Output 11/25/19 07:00 Intake Total 2980 ml Output Total 175 ml Balance 2805 ml Intake Oral 340 ml IV Total 2400 ml Tube Feeding 240 ml Output Urine Total 150 ml Estimated Blood Loss 25 ml # Voids 3 General: Alert, Oriented X3, Cooperative Abdomen: Soft, Other (lap dressings dry, incisional TTP) Labs Laboratory Tests Test 11/24/19 06:40 11/24/19 07:05 White Blood Count 13.8 x10^3/uL (4.0-11.0) Red Blood Count 4.88 x10^6/uL (3.50-5.40) Hemoglobin 14.2 g/dL (12.0-15.5) Hematocrit 42.3 % (36.0-47.0) Mean Corpuscular Volume 87 fL (79-100) Mean Corpuscular Hemoglobin 29 pg (25-35) Mean Corpuscular Hemoglobin Concent 34 g/dL (31-37) Red Cell Distribution Width 14.3 % (11.5-14.5) Platelet Count 313 x10^3/uL (140-400) Neutrophils (%) (Auto) 82 % (31-73) Lymphocytes (%) (Auto) 12 % (24-48) Monocytes (%) (Auto) 5 % (0-9) Eosinophils (%) (Auto) 1 % (0-3) Basophils (%) (Auto) 1 % (0-3) Neutrophils # (Auto) 11.2 x10^3/uL (1.8-7.7) Lymphocytes # (Auto) 1.7 x10^3/uL (1.0-4.8) Monocytes # (Auto) 0.7 x10^3/uL (0.0-1.1) Eosinophils # (Auto) 0.1 x10^3/uL (0.0-0.7) Basophils # (Auto) 0.1 x10^3/uL (0.0-0.2) Sodium Level 139 mmol/L (136-145) Potassium Level 3.8 mmol/L (3.5-5.1) Chloride Level 101 mmol/L (98-107) Carbon Dioxide Level 29 mmol/L (21-32) Anion Gap 9 (6-14) Blood Urea Nitrogen 8 mg/dL (7-20) Creatinine 0.7 mg/dL (0.6-1.0) Estimated GFR (Cockcroft-Gault) 87.5 BUN/Creatinine Ratio 11 (6-20) Glucose Level 131 mg/dL (70-99) Calcium Level 9.2 mg/dL (8.5-10.1) Total Bilirubin 0.4 mg/dL (0.2-1.0) Aspartate Amino Transf (AST/SGOT) 15 U/L (15-37) Alanine Aminotransferase (ALT/SGPT) 18 U/L (14-59) Alkaline Phosphatase 77 U/L (46-116) Creatine Kinase 44 U/L (26-192) Creatine Kinase MB (Mass) < 0.5 ng/mL (0.0-3.6) Creatine Kinase MB Relative Index % (0-4) Troponin I Quantitative < 0.017 ng/mL (0.000-0.055) Total Protein 7.7 g/dL (6.4-8.2) Albumin 3.9 g/dL (3.4-5.0) Albumin/Globulin Ratio 1.0 (1.0-1.7) Lipase 63 U/L (73-393) Urine Collection Type Unknown Urine Color Yellow Urine Clarity Clear Urine pH 8.5 Urine Specific [place] 1.025 Urine Protein 100 mg/dL (NEG-TRACE) Urine Glucose (UA) Negative mg/dL (NEG) Urine Ketones (Stick) >=80 mg/dL (NEG) Urine Blood Negative (NEG) Urine Nitrite Negative (NEG) Urine Bilirubin Negative (NEG) Urine Urobilinogen Dipstick 0.2 mg/dL (0.2 mg/dL) Urine Leukocyte Esterase Negative (NEG) Urine RBC 6-10 /HPF (0-2) Urine WBC 1-4 /HPF (0-4) Urine Squamous Epithelial Cells Few /LPF Urine Bacteria Few /HPF (0-FEW) Urine Mucus Mod /LPF Problem List Problems Medical Problems: (1) Acute cholecystitis Status: Acute Assessment/Plan s/p dennys ok to dc home HARIS ASHFORD MD 11/25/19 1147: SURGICAL PROGRESS NOTE Assessment/Plan Agree with above ANIYAH ALAN EVALUATOR Nov 25, 2019 10:30 HARIS ASHFORD MD Nov 25, 2019 11:47
[2019-11-25] MEDS ORDERED: OXYC1TAB15 PO (10:57)
[2019-11-25 11:00] VITALS: BP 105/58
--- NOTE | 2019-11-25 11:01 | PDOC3 ---
Discharge Summary Visit Information Date of Admission: Nov 24, 2019 Date of Discharge: Nov 25, 2019 Admitting Diagnosis: Acute cholecystitis Final Diagnosis Problems Medical Problems: (1) Acute cholecystitis Status: Acute Brief Hospital Course Allergies Allergies Coded Allergies Type Severity Reaction Last Updated Verified No Known Drug Allergies 11/24/19 No Vital Signs Vital Signs Date Time Temp Pulse Resp B/P (MAP) Pulse Ox O2 Delivery O2 Flow Rate FiO2 11/25/19 08:00 Room Air 11/25/19 07:00 98.2 57 16 108/59 (75) 100 98.2 11/24/19 14:43 10 Lab Results Laboratory Tests Test 11/24/19 06:40 11/24/19 07:05 White Blood Count 13.8 x10^3/uL (4.0-11.0) Red Blood Count 4.88 x10^6/uL (3.50-5.40) Hemoglobin 14.2 g/dL (12.0-15.5) Hematocrit 42.3 % (36.0-47.0) Mean Corpuscular Volume 87 fL (79-100) Mean Corpuscular Hemoglobin 29 pg (25-35) Mean Corpuscular Hemoglobin Concent 34 g/dL (31-37) Red Cell Distribution Width 14.3 % (11.5-14.5) Platelet Count 313 x10^3/uL (140-400) Neutrophils (%) (Auto) 82 % (31-73) Lymphocytes (%) (Auto) 12 % (24-48) Monocytes (%) (Auto) 5 % (0-9) Eosinophils (%) (Auto) 1 % (0-3) Basophils (%) (Auto) 1 % (0-3) Neutrophils # (Auto) 11.2 x10^3/uL (1.8-7.7) Lymphocytes # (Auto) 1.7 x10^3/uL (1.0-4.8) Monocytes # (Auto) 0.7 x10^3/uL (0.0-1.1) Eosinophils # (Auto) 0.1 x10^3/uL (0.0-0.7) Basophils # (Auto) 0.1 x10^3/uL (0.0-0.2) Sodium Level 139 mmol/L (136-145) Potassium Level 3.8 mmol/L (3.5-5.1) Chloride Level 101 mmol/L (98-107) Carbon Dioxide Level 29 mmol/L (21-32) Anion Gap 9 (6-14) Blood Urea Nitrogen 8 mg/dL (7-20) Creatinine 0.7 mg/dL (0.6-1.0) Estimated GFR (Cockcroft-Gault) 87.5 BUN/Creatinine Ratio 11 (6-20) Glucose Level 131 mg/dL (70-99) Calcium Level 9.2 mg/dL (8.5-10.1) Total Bilirubin 0.4 mg/dL (0.2-1.0) Aspartate Amino Transf (AST/SGOT) 15 U/L (15-37) Alanine Aminotransferase (ALT/SGPT) 18 U/L (14-59) Alkaline Phosphatase 77 U/L (46-116) Creatine Kinase 44 U/L (26-192) Creatine Kinase MB (Mass) < 0.5 ng/mL (0.0-3.6) Creatine Kinase MB Relative Index % (0-4) Troponin I Quantitative < 0.017 ng/mL (0.000-0.055) Total Protein 7.7 g/dL (6.4-8.2) Albumin 3.9 g/dL (3.4-5.0) Albumin/Globulin Ratio 1.0 (1.0-1.7) Lipase 63 U/L (73-393) Urine Collection Type Unknown Urine Color Yellow Urine Clarity Clear Urine pH 8.5 Urine Specific [place] 1.025 Urine Protein 100 mg/dL (NEG-TRACE) Urine Glucose (UA) Negative mg/dL (NEG) Urine Ketones (Stick) >=80 mg/dL (NEG) Urine Blood Negative (NEG) Urine Nitrite Negative (NEG) Urine Bilirubin Negative (NEG) Urine Urobilinogen Dipstick 0.2 mg/dL (0.2 mg/dL) Urine Leukocyte Esterase Negative (NEG) Urine RBC 6-10 /HPF (0-2) Urine WBC 1-4 /HPF (0-4) Urine Squamous Epithelial Cells Few /LPF Urine Bacteria Few /HPF (0-FEW) Urine Mucus Mod /LPF Brief Hospital Course Ms Avina is a 54yo [place]riot-speaking only Female with no PMHx who presents with upper abdominal pain that began Sunday11/22/2019. Pain originally was intermittent, but became constant 11/23/2019. Pain radiates to the back and is currently 10/10. She has also been nauseous since and had one episode of emesis 4am this morning. No changes in bowel movements. She has not been able to eat much since Sunday. She ate some enchiladas which worsened her abdominal pain. She has had a similar pain like this about a year ago. She said that she went to [facility] and they said her "gallbladder was swollen". She also admits to dysuria that began about 2 weeks ago with increased frequency of urination and decreased void volume. She denies hematuria, heamtochezia, melena, chest pain, palpitations, and shortness of breath. In ED US shows 2.7 cm gallstone and gallbladder sludge. There is superimposed gallbladder wall thickening. This may be due to intrinsic liver disease or cholecystitis. WBC was 13.8, afebrile. Given IV zosyn and consulted general surgery for admission for cholecystitis. To Lap dennys confirming cholecystitis on 11/24/2019 in the afternoon. Seen POD #1. Minimal pain, passing flatus. Problem list: RUQ abdominal pain - with leukocytosis, large stone, sludge and findings consistent with cholecystitis given empiric zosyn, consulted general surgery, s/p lap appy 11/24/2019. IV pain control, anti-emetics Hepatic steatosis - likely NAFLD. Will check A1c given her hyperglycemia, lipids Hyperglycemia - checked A1c Greater than 30 minutes spent on d/c Discharge Information Condition at Discharge: Improved Follow Up: Weeks (1) Disposition/Orders: D/C to Home Scheduled PRN Oxycodone/Apap 5-325 (Percocet 5-325 Mg Tablet ) 1 Each Tablet, 1 TAB PO PRN Q4HRS PRN for MILD - MODERATE PAIN for 6 Days, #12 Prescribed by: KRISTEN PYLE MD on 11/25/19 1057 KRISTEN PYLE MD Nov 25, 2019 11:00
[2019-11-25] MEDS: oxyCODONE/APAP 5/325 1 TAB TABLET PO PRN (13:01)
--- NOTE | 2019-11-25 13:35 | NUR ---
SW following. Discussed with RN. Pt had questions about billing, social work met with pt and pt's daughter at bedside. SW advised pt to contact the booker department or visit booker when her bill arrives to determine if they can arrange some sort of payment plan and what not. Pt understood. No further SW needs. Pt discharging home with self care today.
--- NOTE | 2019-11-25 13:54 | NUR ---
Discharge Note: SALOME MCKEON MODEL Discharge instructions and discharge home medications reviewed with Patient and a copy given. All questions have been answered and understanding verbalized. The following instructions and handouts were given: Diet, activity, medication list and follow up instructions provided to patient and patient's daughter. Discontinued lines and drains: Peripheral IV discontinued and catheter intact. [facility]
[2019-11-25] MEDS ORDERED: LACTOBACILLUS RHAMNOSUS GG 1 CAPSULE. PO SCH (21:00)
--- NOTE | 2019-11-26 09:07 | PATHOLOGY ---
[facility] Accession Number: [id number] . 01 Material submitted: . gallbladder - GALLBLADDER AND CONTENTS . 01 Clinical history: . Acute cholecystitis . 02 Diagnosis: Gallbladder, cholecystectomy: - Acute necrotizing and chronic cholecystitis. - Cholelithiasis . ([facility]:mm; 11/25/2019) [facility] 11/25/2019 1543 Local . 02 Comment: There is no evidence of malignancy. . ([facility]:mm; 11/25/2019) . 02 Electronically signed: . Westley Tsai MD, Pathologist NPI- [id number] . 01 Gross description: . The specimen is received in formalin, labeled "Amanda Fabrice, gallbladder and contents". Received is an intact gallbladder measuring 9.0 x 4.2 x 4.0 cm in greatest dimensions displaying a pink-way, shaggy serosal surface. Opening the specimen reveals a velvety, red-brown mucosa with a gallbladder wall thickness of up to 0.2 cm. The lumen of the gallbladder is filled with blood-tinged fluid. Calculi are present displaying a light brown and granular appearance, and no masses or lesions are noted grossly. Residential Director sections, to include the proximal margin, are submitted in cassette A1. ([facility]; 11/24/2019) QA/QA 11/24/2019 1709 Local . 02 Pathologist provided ICD-10: K80.12 . 02 CPT . 537003 Specimen Comment: A courtesy copy of this report has been sent to [phone], [phone] Specimen Comment: [phone], , Specimen Comment: Report sent to , Dr.Dr.RIFFEL ELFEGO Specimen Comment: and Performed at: [address] [facility], [place], [place] [id number] MD Shine Gruber MD Phone: [phone] Performed at: 02 [facility] [address] [place], [place] [id number] MD Westley Tsai MD Phone: [phone]
== END 2019-11-25 13:58 | disposition home or self-care (01) | DRG 419 ==
LOC: ER 06:16 → 4 NORTH 08:30
PROVIDERS: ADMIT Internal Medicine; ATTEND Internal Medicine
PROC: BF131ZZ Fluoroscopy of Gallbladder and Bile Ducts using Low Osmolar Contrast (ICD-10-PCS; 2019-11-24)
PROC: 0FT44ZZ Resection of Gallbladder, Percutaneous Endoscopic Approach (ICD-10-PCS; principal; 2019-11-24 13:15)
DX: K80.00 Calculus of gallbladder with acute cholecystitis without obstruction (principal); K76.0 Fatty (change of) liver, not elsewhere classified; K82.8 Other specified diseases of gallbladder; Z82.49 Family history of ischemic heart disease and other diseases of the circulatory system; R73.9 Hyperglycemia, unspecified
CPT/HCPCS: 36415; 74300; 76705; 80053; 81001; 82553; 83690; 84484; 85025; 93005; 96361; 96365; 96375; 99285; A7015; J1100; J1885; J2001; J2405; J2543; J2704; J2710; J3010; J3490; J7030; J7120; Q9967; G0378